=== PATIENT | male | born 1985 | race Caucasian/White ===

== ENCOUNTER 2023-08-15 08:38 | Emergency (ER) | payer SELFPAY ==
[~2023-08-15] VITALS: Ht 188 cm; Wt 89.8 kg
[2023-08-15 08:55] VITALS: O2SAT 99
[2023-08-15] MEDS ORDERED: NAPROXEN250 MG PO (09:07)
[2023-08-15] MEDS ORDERED: AMOXICILLIN500 MG PO (09:07)
[2023-08-15] MEDS ORDERED: ULTRAM 50MG50 MG PO (09:08)
== END 2023-08-15 09:15 | disposition home or self-care (01) ==
LOC: ER 08:43
DX: K08.89 Other specified disorders of teeth and supporting structures (principal); K02.9 Dental caries, unspecified
CPT/HCPCS: 99282